=== PATIENT | female | born 1965 | race Caucasian/White ===

== ENCOUNTER → 2022-07-25 13:59 | Outpatient (CLI) | payer OTHER, SELFPAY ==
--- NOTE | 2022-07-25 14:01 | DI.NM.S_ITS ---
PROCEDURE: NM EXERCISE TREADMILL NON NUC COMPARISON: None. INDICATIONS: PALPITATIONS/SHORTNESS OF BREATH FINDINGS: Rest ECG sinus rhythm. Yordan protocol 9:16, maximum heart rate 155 bpm (94% peak predicted), maximum blood pressure 152/70, 10.1 METS, CUCA -26%. Stress ECG sinus tachycardia, no ST segment changes or arrhythmia. The patient complained of 2 out of 10 mid chest pressure during peak exercise that quickly resolved in recovery. IMPRESSION: No evidence of exercise-induced ischemia or arrhythmia. Normal hemodynamic response to exercise. Very good exercise capacity. Dictated by: Antonia Fuentes D.O. on 07/26/2022 at 17:20 Approved by: Antonia Fuentes D.O. on 07/26/2022 at 17:23
[2022-07-25 15:12] LABS: COVID19 -Nasal RAPID Negative (Negative)
== END ==
PROVIDERS: Family Provider Specialist; PCP Specialist; Referring Provider Nurse Practitioner Family; Visit Provider Nurse Practitioner Family
DX: R00.2 Palpitations (principal); R06.02 Shortness of breath; Z20.822 Contact with and (suspected) exposure to COVID-19
CPT/HCPCS: 87635; 93017